=== PATIENT | female | born 1955 | race Caucasian/White ===

== ENCOUNTER 2019-09-04 10:52 | Emergency (ER) | payer BC, MEDICAID ==
[2019-09-04] MEDS ORDERED: ASPIRIN 81 MG TABLET, CHEWABLE PO ONE (11:03)
[2019-09-04] MEDS ORDERED: MORPHINE SULFATE 10 MG/ML INJ IV ONE ×2 (11:07→11:52)
[2019-09-04] MEDS ORDERED: NORMAL SALINE 1000 ML 1,000 ML IV ONE ×2 (11:09→13:28)
--- NOTE | 2019-09-04 11:09 | ER Document Report ---
ED Medical Screen (RME) - General Chief Complaint: Chest Pain Stated Complaint: CHEST PAIN Time Seen by Provider: 09/04/19 11:03 Mode of Arrival: Wheelchair Information source: Patient Notes: 64-year-old female presented to ED for complaint of left-sided chest pain. She states it does not radiate down her left arm or shoulder but she does have numbness to her left arm and shoulder. She states she has had the pain for about 4 days. She states she called her special inspector at [place] and they told her to please go immediately to the emergency room. She did have an IL about a year ago. She is alert oriented respirations regular nonlabored speaking in full sentences. States she does not smoke drink or use any drugs. She states the pain is a 4 out of 5. I have started the normal cardiac work-up started her on aspirin and given her 2 mg of morphine IV. I have greeted and performed a rapid initial assessment of this patient. A comprehensive ED assessment and evaluation of the patient, analysis of test results and completion of medical decision making process will be conducted by an additional ED providers. TRAVEL OUTSIDE OF THE [place].S. IN LAST 30 DAYS: No - Related Data Allergies/Adverse Reactions: Iodinated Contrast Media [IV Dye, Iodine Containing] Allergy (Verified 05/07/12 03:02) Past Medical History - Past Medical History Cardiac Medical History: Reports: Hx Hypercholesterolemia, Hx Hypertension Endocrine Medical History: Reports: Hx Diabetes Mellitus Type 2, Hx Hypothyroidism Past Surgical History: Reports: Hx Section, Hx Cholecystectomy, Hx Gastric Bypass Surgery, Hx Hysterectomy - Immunizations Immunizations up to date: Yes Hx Diphtheria, Pertussis, Tetanus Vaccination: Yes Physical Exam - Vital signs Vitals: Temp Pulse Resp BP Pulse Ox 97.8 F 65 18 130/63 H 98 09/04/19 11:01 09/04/19 11:01 09/04/19 11:01 09/04/19 11:01 09/04/19 11:01 Course - Vital Signs Vital signs: Temp Pulse Resp BP Pulse Ox 97.8 F 65 18 130/63 H 98 09/04/19 11:01 09/04/19 11:01 09/04/19 11:01 09/04/19 11:01 09/04/19 11:01
[2019-09-04 11:27] LABS: ABSOLUTE EOSINOPHILS # (AUTO) 0.1 10^3/uL (0.0-0.6); ABSOLUTE LYMPHOCYTES (AUTO) 1.7 10^3/uL (0.5-4.7); ABSOLUTE MONOCYTES (AUTO) 0.5 10^3/uL (0.1-1.4); ABSOLUTE NEUT (AUTO) 3.8 10^3/uL (1.7-8.2); BASOPHILS % (AUTO) 0.8 % (0-2); HEMATOCRIT 34.2 % (36.0-47.0); HEMOGLOBIN 12.4 g/dL (12.0-15.5); MEAN CORPUSCULAR HEMOGLOBIN 35.3 pg (27.0-33.4); MEAN CORPUSCULAR HGB CONC 36.3 g/dL (32.0-36.0); MEAN CORPUSCULAR VOLUME 97 fl (80-97); MONOCYTES % (AUTO) 7.7 % (3-13); PLATELET COUNT 312 10^3/uL (150-450); RED BLOOD COUNT 3.52 10^6/uL (3.72-5.28); RED CELL DISTRIBUTION WIDTH 13.9 % (11.5-14.0); SEGMENTED NEUTROPHILS % (AUTO) 61.5 % (42-78); TOTAL CELLS COUNTED % (AUTO) 100 %; WHITE BLOOD COUNT 6.2 10^3/uL (4.0-10.5)
[2019-09-04 11:48] LABS: ALKALINE PHOSPHATASE 75 U/L (38-126); ANION GAP 10 (5-19); ASPARTATE AMINO TRANSFERASE 35 U/L (14-36); BILIRUBIN,TOTAL 0.4 mg/dL (0.2-1.3); BLOOD UREA NITROGEN 21 mg/dL (7-20); CALCIUM 9.7 mg/dL (8.4-10.2); CARBON DIOXIDE 26 mmol/L (22-30); CHLORIDE 106 mmol/L (98-107); GLUCOSE 105 mg/dL (75-110); POTASSIUM 4.5 mmol/L (3.6-5.0); TOTAL PROTEIN 8.3 g/dL (6.3-8.2)
[2019-09-04] MEDS ORDERED: ONDANSETRON HCL INJ/PF 4 MG/2 ML SDV IV ONE (11:51)
[2019-09-04] MEDS ORDERED: METHYLPREDNISOLONE INJ 125 MG/2 ML SDV IV ONE (11:57)
[2019-09-04] MEDS ORDERED: FAMOTIDINE INJ/PF 20 MG/2 ML SDV IV ONE (11:58)
[2019-09-04] MEDS ORDERED: DIPHENHYDRAMINE HCL 50 MG/ML VIAL IV ONE (11:58)
--- NOTE | 2019-09-04 12:02 | RADIOLOGY REPORT (SQ) ---
EXAM DESCRIPTION: CHEST 2 VIEWS IMAGES COMPLETED DATE/TIME: 09/04/2019 11:52 am REASON FOR STUDY: chest pain COMPARISON: 05/04/2015 EXAM PARAMETERS: NUMBER OF VIEWS: two views TECHNIQUE: Digital Frontal and Lateral radiographic views of the chest acquired. RADIATION DOSE: NA LIMITATIONS: none FINDINGS: LUNGS AND PLEURA: No opacities, masses or pneumothorax. No pleural effusion. MEDIASTINUM AND HILAR STRUCTURES: No masses or contour abnormalities. HEART AND VASCULAR STRUCTURES: Heart normal size. No evidence for failure. BONES: No acute findings. HARDWARE: None in the chest. Surgical clips overlie left upper quadrant. OTHER: No other significant finding. IMPRESSION: NO ACUTE RADIOGRAPHIC FINDING IN THE CHEST. TECHNICAL DOCUMENTATION: JOB ID: [id number] 2010 [employer]- All Rights Reserved Reading location - IP/workstation name: [email or web address]
--- NOTE | 2019-09-04 12:05 | ER Document Report ---
ED General - General Chief Complaint: Chest Pain Stated Complaint: CHEST PAIN Time Seen by Provider: 09/04/19 11:03 Mode of Arrival: Wheelchair TRAVEL OUTSIDE OF THE [place].S. IN LAST 30 DAYS: No - HPI Notes: Chief complaint: Chest pain HPI: 64-year-old female with known history of coronary disease with previous PR and stent placement at [facility] and seen there by Dr. Mi now presents with 4- day history intermittent chest and back pain. States that the pain is somewhat different than her prior ischemic pain. She reports a slip and fall at home about 10 days ago but did not have any pain at that time and began experiencing her present symptoms 4 days ago. This is gotten progressively worse. It is aggravated by exertion and relieved by rest. No shortness of breath. Mild dizziness. No nausea, vomiting, cough, chills or fever. No dyspnea. Denies any personal or family history of thromboembolic disease. Patient is a non-smoker. She is not diabetic but has history of hyperlipidemia and hypertension as well as pre-existing history of coronary disease. Patient reports multiple allergies including IV contrast, hydrochlorothiazide and Plavix. She takes aspirin daily. Patient indicates that her reaction to IV contrast was mild urticaria. She also notes that she is subsequently received IV contrast after steroid pretreatment and is done well with this. Patient received a dose of sublingual nitroglycerin and 2 mg of morphine when she was initially seen on arrival here by the nurse practitioner. She reports her present pain level remains 8/10. Pain radiates into her back. - Related Data Allergies/Adverse Reactions: Iodinated Contrast Media [IV Dye, Iodine Containing] Allergy (Verified 05/07/12 03:02) Past Medical History - General Information source: Patient, [facility] Records - Social History Smoking Status: Never Smoker Family History: Reviewed & Not Pertinent Patient has suicidal ideation: No Patient has homicidal ideation: No - Past Medical History Cardiac Medical History: Reports: Hx Coronary Artery Disease, Hx Heart Attack, Hx Hypercholesterolemia, Hx Hypertension Endocrine Medical History: Reports: Hx Diabetes Mellitus Type 2, Hx Hypothyroidism Past Surgical History: Reports: Hx Section, Hx Cholecystectomy, Hx Gas tric Bypass Surgery, Hx Hysterectomy - Immunizations Immunizations up to date: Yes Hx Diphtheria, Pertussis, Tetanus Vaccination: Yes Review of Systems - Review of Systems Notes: Constitutional: Negative for fever. HENT: Negative for sore throat. Eyes: Negative for visual changes. Cardiovascular: As per HPI. Respiratory: As per HPI. Gastrointestinal: Negative for abdominal pain, vomiting or diarrhea. Genitourinary: Negative for dysuria. Musculoskeletal: As per HPI. Skin: Negative for rash. Neurological: Mild dizziness. Negative for headaches, weakness or numbness. 10 point ROS negative except as marked above and in HPI. Physical Exam - Vital signs Vitals: Temp Pulse Resp BP Pulse Ox 97.8 F 65 18 130/63 H 98 09/04/19 11:01 09/04/19 11:01 09/04/19 11:01 09/04/19 11:01 09/04/19 11:01 - Notes Notes: GENERAL: Well-developed well-nourished appearing in no acute distress. SKIN: Good turgor no rashes. HEAD: Normocephalic atraumatic. EYES: PERRLA. EOMI. Conjunctivae and sclerae clear. EARS: CANALS AND TMS CLEAR. NOSE: CLEAR. MOUTH: Moist mucosa. Good dentition. No stridor or edema. No drooling. NECK: Supple. No masses or thyromegaly. No adenopathy. Carotids 2+ without bruits. No JVD. BACK: Symmetrical without tenderness. CHEST: No chest wall tenderness. Respirations unlabored. Breath sounds clear and symmetrical. HEART: Regular rhythm. Grade 2/6 systolic murmur right second interspace without radiation. No gallop or rub. ABDOMEN: Soft nontender without masses, organomegaly or rebound. Bowel sounds normally active. No bruits. GENITALIA: Deferred. EXTREMITIES: Mild degenerative changes in phalangeal joints both hands. No edema. No calf tenderness. Cap refill less than 1.5 seconds. Dorsalis pedis and posterior tibial pulses 3+ and symmetrical. NEUROLOGICAL: GCS 15. Alert and oriented x3. Normal gait. Fluent speech. Cranial nerves II through XII intact. Sensorimotor and cerebellar normal. Normal tone. PSYCHIATRIC: Anxious affect. Course - Re-evaluation Re-evalutation: 09/04/19 12:06 Initial troponin is normal. Chest x-ray normal. Initial EKG normal. Because of radiation of the back I would have to have some concern about possibility of a dissection although this pain is been going on for a while now. Also have to consider pulmonary embolus. We are going to get a CT angiogram of the chest and I am going to pretreat her with antihistamine and IV steroid. We will give her some additional morphine for pain control. 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 Mi. Current findings and recommendations have been discussed with patient in detail. 09/04/19 14:[address] Mi and Dr. Leyva at [facility] and patient has been accepted as transfer for evaluation possible ACS. IV nitroglycerin and IV heparin infu julia initiated. Patient advised as to current findings and recommendations and she fully understands and agrees with transfer. - Vital Signs Vital signs: Temp Pulse Resp BP Pulse Ox 97.8 F 65 19 122/69 96 09/04/19 11:01 09/04/19 11:01 09/04/19 13:00 09/04/19 11:17 09/04/19 13:00 - Laboratory Result Diagrams: 09/04/19 11:15 09/04/19 11:15 Laboratory results interpreted by me: 09/04/19 09/04/19 09/04/19 11:15 11:15 11:15 RBC 3.52 L Hct 34.2 L MCH 35.3 H MCHC 36.3 H APTT 21.6 L BUN 21 H Creatinine 1.66 H Est GFR ( Amer) 38 L Est GFR (MDRD) Non-Af 31 L Total Protein 8.3 H - EKG Interpretation by Me Additional EKG results interpreted by me: 09/04/19 12:06 Twelve-lead EKG from 1056 hrs. is reviewed contemporaneously by me demonstrating normal sinus rhythm with a rate of 62, normal intervals, normal axis and no acute ST/T wave changes. Critical Care Note - Critical Care Note Total time excluding time spent on procedures (mins): 65 - ACS, IV nitroglycerin and IV heparin with transfer to interventional cardiology Discharge - Discharge Clinical Impression: Acute coronary syndrome Condition: Fair Disposition: [facility]
[2019-09-04 12:10] LABS: INTERNATIONAL RATION (INR) 0.93; PARTIAL THROMBOPLASTIN TIME 21.6 SEC (23.5-35.8); PROTHROMBIN TIME 12.5 SEC (11.4-15.4)
--- NOTE | 2019-09-04 13:16 | RADIOLOGY REPORT (SQ) ---
EXAM DESCRIPTION: CTA CHEST IMAGES COMPLETED DATE/TIME: 09/04/2019 12:55 pm REASON FOR STUDY: CP; r/o PE, Ao dissection COMPARISON: Recent radiographs. 2009 CT. TECHNIQUE: CT scan of the chest performed using helical scanning technique with dynamic intravenous contrast injection. Images reviewed with lung, soft tissue and bone windows. Reconstructed coronal and sagittal MPR images reviewed. Additional 3 dimensional post-processing performed to develop Maximal Intensity Projection images ([place] P). All images stored on PACS. All CT scanners at this facility use dose modulation, iterative reconstruction, and/or weight based d osing when appropriate to reduce radiation dose to as low as reasonably achievable (ALARA). [facility]: Dose Right [facility]: CareDose [facility]: Dose Right [facility]: Teradose 4D [facility]: [employer] CONTRAST TYPE AND DOSE: contrast/concentration: Isovue 300.00 mg/ml; Total Contrast Delivered: 52.0 ml; Total Saline Delivered: 70.0 ml Contrast bolus adequate for pulmonary arteries and aorta. RENAL FUNCTION: GFR > 60. RADIATION DOSE: CT Rad equipment meets quality standard of care and radiation dose reduction techniq ues were employed. CTDIvol: 9.9 - 14.3 mGy. DLP: 514 mGy-cm. . LIMITATIONS: None. FINDINGS: LUNGS AND PLEURA: No masses, infiltrates, or pneumothorax. No pleural effusions or pleura l calcifications. AORTA AND GREAT VESSELS: No aneurysm. Contrast bolus not optimized for the aorta. HEART: No pericardial effusion. No significant coronary artery calcifications. PULMONARY ARTERIES: No emboli visualized in the main pulmonary arteries or the segmental branches. HILAR AND MEDIASTINAL STRUCTURES: No identified masses or abnormal nodes. HARDWARE: None in the chest. UPPER ABDOMEN: Chronic pancreatic cysts suggested. THYROID AND OTHER SOFT TISSUES: No masses. No adenopathy. BONES: No acute or significant finding. 3D MIPS: Confirm above findings. OTHER: No other significant finding. IMPRESSION: NORMAL CTA OF THE CHEST. NO PULMONARY EMBOLI. COMMENT: Quality ID # 436: Final reports with documentation of one or more dose reduction techniques (e.g., Automated exposure control, adjustment of the mA and/or kV according to patient size, use of iterative reconstruction technique) TECHNICAL DOCUMENTATION: JOB ID: [id number] 2010 [employer]- All Rights Reserved Reading location - IP/workstation name: [email or web address]
[2019-09-04] MEDS ORDERED: MORPHINE SULFATE 10 MG/ML INJ IV PRN (14:28)
[2019-09-04] MEDS ORDERED: NITROGLYCERIN/D5W 50 MG/250 ML RTUINJ IV PRN (14:29)
[2019-09-04] MEDS ORDERED: HEPARIN SOD (PORCINE) 1,000 UNIT/ML 10 ML VIAL IV ONE (14:31)
[2019-09-04] MEDS ORDERED: HEPARIN SODIUM,PORCINE/D5W 25,000 UNIT/250 ML RTUINJ IV PRN (14:31)
[2019-09-04 15:45] VITALS: BP 167/76
--- NOTE | 2019-09-05 07:27 | EKG REPORT ---
SEVERITY:- NORMAL ECG - SINUS RHYTHM : Confirmed by: Uma Dean 05-Sep-2019 07:26:32
--- NOTE | 2019-09-05 07:27 | EKG REPORT ---
SEVERITY:- NORMAL ECG - SINUS RHYTHM : Confirmed by: Uma Dean 05-Sep-2019 07:26:38
== END 2019-09-04 16:00 | disposition short-term general hospital (02) ==
LOC: ER 10:52
DX: I24.9 Acute ischemic heart disease, unspecified (principal); I10 Essential (primary) hypertension; I25.10 Atherosclerotic heart disease of native coronary artery without angina pectoris; R07.9 Chest pain, unspecified; M54.9 Dorsalgia, unspecified; R42 Dizziness and giddiness; W01.0XXA Fall on same level from slipping, tripping and stumbling without subsequent striking against object, initial encounter; I25.2 Old myocardial infarction; E78.5 Hyperlipidemia, unspecified; E11.9 Type 2 diabetes mellitus without complications
CPT/HCPCS: 93005; 96376; 99291; 96361; 96375; 96365; 96368; 36415; 83735; 85025; 85610; 85730; 80053; 84484; 71046; 71275; 93010; J1644 ×2; J1200; J2930; J2270; J2405; J3490; J7030; S0028

== ENCOUNTER 2019-10-09 00:30 | Emergency (ER) | payer BC ==
[2019-10-09] MEDS ORDERED: ONDANSETRON HCL INJ/PF 4 MG/2 ML SDV IV ONE ×2 (01:19→03:13)
[2019-10-09] MEDS ORDERED: MORPHINE SULFATE 10 MG/ML INJ IV ONE ×4 (01:38→09:00)
[2019-10-09 01:51] LABS: ABSOLUTE BASOPHILS # (AUTO) 0.1 10^3/uL (0.0-0.2); ABSOLUTE EOSINOPHILS # (AUTO) 0.1 10^3/uL (0.0-0.6); ABSOLUTE LYMPHOCYTES (AUTO) 1.6 10^3/uL (0.5-4.7); ABSOLUTE MONOCYTES (AUTO) 0.9 10^3/uL (0.1-1.4); ABSOLUTE NEUT (AUTO) 14.5 10^3/uL (1.7-8.2); BASOPHILS % (AUTO) 0.5 % (0-2); EOSINOPHILS % (AUTO) 0.3 % (0-6); HEMOGLOBIN 13.5 g/dL (12.0-15.5); LYMPHOCYTES % (AUTO) 9.4 % (13-45); MEAN CORPUSCULAR HEMOGLOBIN 33.8 pg (27.0-33.4); MEAN CORPUSCULAR HGB CONC 34.7 g/dL (32.0-36.0); MEAN CORPUSCULAR VOLUME 97 fl (80-97); MONOCYTES % (AUTO) 5.4 % (3-13); PLATELET COUNT 307 10^3/uL (150-450); RED CELL DISTRIBUTION WIDTH 13.5 % (11.5-14.0); SEGMENTED NEUTROPHILS % (AUTO) 84.4 % (42-78); TOTAL CELLS COUNTED % (AUTO) 100 %; WHITE BLOOD COUNT 17.1 10^3/uL (4.0-10.5)
[2019-10-09 01:56] LABS: PROTHROMBIN TIME 12.1 SEC (11.4-15.4)
[2019-10-09 01:57] LABS: ALBUMIN 5.3 g/dL (3.5-5.0); ALKALINE PHOSPHATASE 95 U/L (38-126); ANION GAP 13 (5-19); ASPARTATE AMINO TRANSFERASE 30 U/L (14-36); BILIRUBIN,DIRECT 0.1 mg/dL (0.0-0.4); BILIRUBIN,TOTAL 0.4 mg/dL (0.2-1.3); BLOOD UREA NITROGEN 38 mg/dL (7-20); CALCIUM 10.8 mg/dL (8.4-10.2); CARBON DIOXIDE 28 mmol/L (22-30); CHLORIDE 97 mmol/L (98-107); GLUCOSE 203 mg/dL (75-110); POTASSIUM 4.1 mmol/L (3.6-5.0); TOTAL PROTEIN 8.7 g/dL (6.3-8.2)
[2019-10-09] MEDS ORDERED: HYDROCORTISONE SOD SUCCINATE INJ/PF 100 MG/2 ML SDV IV ONE (02:35)
[2019-10-09] MEDS ORDERED: DIPHENHYDRAMINE HCL 50 MG/ML VIAL IV ONE (02:37)
[2019-10-09] MEDS ORDERED: RINGERS SOLUTION,LACTATED 1,000 ML IV ONE (02:38)
--- NOTE | 2019-10-09 03:48 | RADIOLOGY REPORT (SQ) ---
ABDOMINAL RADIOGRAPH: 10/09/2019 2:46 AM CDT COMPARISON: None available TECHNIQUE: A single radiograph of the abdomen was obtained. HISTORY: 64-year old with abdominal pain. FINDINGS: The visualized lung bases appear clear. The visualized bowel gas pattern is nonspecific and nonobstructive. No abnormal intra-abdominal calcifications are seen. The hepatic silhouette is at the upper limits of normal in size. There are surgical clips seen over the left upper and mid abdomen. There is a nonspecific mildly prominent loop of small bowel at the left mid abdomen. IMPRESSION: The bowel gas pattern is nonobstructive and nonspecific.
--- NOTE | 2019-10-09 03:48 | RADIOLOGY REPORT (SQ) ---
AP Portable chest: 10/09/2019 2:46 AM CDT History: 64-year old patient with vomiting. Comparison: None available Findings: The cardiomediastinal silhouette is normal in size. No pneumothorax is seen. No acute airspace opacities are seen. No discrete pleural effusion is apparent. There are surgical clips seen over the left upper abdomen. Impression: No acute airspace opacities are seen.
[2019-10-09] MEDS ORDERED: METOCLOPRAMIDE HCL INJ/PF 10 MG/2 ML SDV IV ONE (04:06)
[2019-10-09] MEDS ORDERED: METOCLOPRAMIDE HCL INJ/PF 10 MG/2 ML SDV ONE (04:07)
--- NOTE | 2019-10-09 05:28 | RADIOLOGY REPORT (SQ) ---
EXAM DESCRIPTION: CT ABDOMEN PELVIS WITH IV CONTRAST COMPLETED DATE/TME: 10/09/2019 00:00 CLINICAL HISTORY: 64 years, Female, abd pain vomiting h/o sbo. CREAT 1.69 COMPARISON: None. TECHNIQUE: 674 Images stored on PACS. All CT scanners at this facility use dose modulation, iterative reconstruction, and/or weight based dosing when appropriate to reduce radiation dose to as low as reasonably achievable (ALARA). [facility]: Dose Right [facility]: CareDose [facility]: Dose Right [facility]: Teradose 4D [facility]: [employer] LIMITATIONS: None. FINDINGS: Visualized lung bases are unremarkable. Osseous structures are grossly intact. The liver, spleen, adrenal glands, pancreas, kidneys are unremarkable. Surgical absence of the gallbladder. Post surgical changes in the epigastric region consistent with gastric bypass. There is some fluid in the excluded stomach. Dilated appearance to the distal anastomosis measuring up to 5 cm. Diffusely dilated fluid-filled loops of small bowel are present throughout the abdomen and pelvis with suspected transition point in the right lower quadrant. Remaining small bowel loops have a maximal diameter of 3.7 cm. No free air or free fluid. Appendix not well seen. No pericecal inflammation. IMPRESSION: Small bowel obstruction with transition point likely in the right lower quadrant involving distal loops of ileum. Mildly dilated loops of small bowel are present, as well as mild dilatation of the distal gastric bypass anastomosis. No free air or free fluid. TECHNICAL DOCUMENTATION: Quality ID # [id number]: Final reports with documentation of one or more dose reduction techniques (e.g., Automated exposure control, adjustment of the mA and/or kV according to patient size, use of iterative reconstruction technique) copyright 2011 [employer]- All Rights Reserved
[2019-10-09] MEDS ORDERED: LIDOCAINE 2% INJ-PF (20 MG/ML) 10 ML AMPUL NEB ONE (05:41)
--- NOTE | 2019-10-09 06:23 | ER Document Report ---
ED General - General Chief Complaint: Abdominal Pain Stated Complaint: VOMITING Primary Care Provider: RICARDA KNOWLES MD [Primary Care Provider] - Follow up as needed TRAVEL OUTSIDE OF THE [place]. IN LAST 30 DAYS: No - HPI Notes: 64-year-old female history of CAD with stents, 3 prior C-sections, hysterectomy, oratory laparoscopy, SBO with surgical intervention approximately 1 month ago at [facility] presents with 1 day severe diffuse abdominal pain associated with numerous episodes of nonbilious nonbloody emesis similar to prior SBO presentation. Patient denies constipation, obstipation, diarrhea, fever, trauma, urinary symptoms, [employer] symptoms, chest pain, dizziness, syncope. - Related Data Allergies/Adverse Reactions: clonidine Allergy (Verified 10/09/19 04:40) clopidogrel [From Plavix] Allergy (Verified 10/09/19 04:40) hydrochlorothiazide Allergy (Verified 10/09/19 04:40) Iodinated Contrast Media [IV Dye, Iodine Containing] Allergy (Verified 10/09/19 02:31) Past Medical History - General Information source: Patient - Social History Smoking Status: Unknown if Ever Smoked Family History: Reviewed & Not Pertinent Patient has homicidal ideation: No - Past Medical History Cardiac Medical History: Reports: Hx Coronary Artery Disease, Hx Heart Attack, Hx Hypercholesterolemia, Hx Hypertension Endocrine Medical History: Reports: Hx Diabetes Mellitus Type 2, Hx Hypothyroidism Past Surgical History: Reports: Hx Section, Hx Cholecystectomy, Hx Gastric Bypass Surgery, Hx Hysterectomy - Immunizations Immunizations up to date: Yes Hx Diphtheria, Pertussis, Tetanus Vaccination: Yes Review of Systems - Review of Systems Notes: REVIEW OF SYSTEMS: CONSTITUTIONAL : Denies fever, chills, or sweats. EENT: Denies recent cold/sinus symptoms, denies throat pain CARDIOVASCULAR: Denies chest pain, HANNAH RESPIRATORY: Denies cough, denies shortness of breath. GASTROINTESTINAL: + abdominal pain, +nausea/vomiting. GENITOURINARY: Denies difficulty urinating, painful urination. FEMALE GENITOURINARY: Denies abnormal vaginal bleeding, vaginal discharge. MUSCULOSKELETAL: Denies neck pain, back pain. SKIN: Denies rash or skin lesions. HEMATOLOGIC : Denies easy bruising or bleeding. LYMPHATIC: Denies swollen, enlarged glands. NEUROLOGICAL: Denies headache, denies change in gait. PSYCHIATRIC: Denies anxiety or stress or depression. Physical Exam - Vital signs Vitals: Temp Pulse Resp BP Pulse Ox 97.6 F 66 13 105/89 H 98 10/09/19 00:54 10/09/19 00:54 10/09/19 00:54 10/09/19 00:54 10/09/19 00:54 - Notes Notes: PHYSICAL EXAMINATION: GENERAL: Uncomfortable appearing middle-aged woman vomiting into emesis bag sitting up in stretcher HEAD: Atraumatic, normocephalic. EYES: Pupils equal round and appropriate constriction, sclera anicteric, conjunctiva are normal. ENT: nares patent, moist mucous membranes. NECK: Normal range of motion, supple without lymphadenopathy LUNGS: Breath sounds clear to auscultation bilaterally and equal. No wheezes rales or rhonchi. HEART: Regular rate and rhythm without murmurs ABDOMEN: Soft, tender diffusely, no guarding, no masses, no rebound, no CVAT EXTREMITIES: Normal range of motion, no pitting or edema. No cyanosis. NEUROLOGICAL: Awake, alert, conversing appropriately, moves all extremities spontaneously. PSYCH: Normal mood, normal affect. SKIN: Warm, Dry, normal turgor, no rashes or lesions noted. Course - Re-evaluation Re-evalutation: 10/09/19 06:21 Presentation concerning for repeat SBO, less likely appendectomy, no symptoms, patient otherwise well-appearing. Obtain CT abdomen pelvis which showed SBO, ordered NG tube and consulted [facility] where patient had lysis of adhesion a month ago. Patient accepted as surgical admission by Dr. Eduar Bartlett. Patient currently feels improved, no change in exam, pain improved with morphine. - Vital Signs Vital signs: Temp Pulse Resp BP Pulse Ox 97.6 F 66 20 182/96 H 99 10/09/19 02:26 10/09/19 00:54 10/09/19 04:02 10/09/19 04:02 10/09/19 04:02 - Laboratory Result Diagrams: 10/09/19 01:15 10/09/19 01:15 Laboratory results interpreted by me: 10/09/19 10/09/19 10/09/19 01:15 01:15 01:15 WBC 17.1 H MCH 33.8 H Lymph % (Auto) 9.4 L Absolute Neuts (auto) 14.5 H Seg Neutrophils % 84.4 H APTT 22.0 L Chloride 97 L BUN 38 H Creatinine 1.69 H Est GFR ( Amer) 37 L Est GFR (MDRD) Non-Af 31 L Glucose 203 H Calcium 10.8 H Total Protein 8.7 H Albumin 5.3 H Lipase 431.2 H Discharge - Discharge Clinical Impression: SBO (small bowel obstruction) Condition: Fair [facility] Admitting Provider: Surgicalist - Dr. Eduar Bartlett Referrals: RICARDA KNOWLES MD [Primary Care Provider] - Follow up as needed
--- NOTE | 2019-10-09 07:26 | EKG REPORT ---
SEVERITY:- BORDERLINE ECG - SINUS RHYTHM PROBABLE LEFT ATRIAL ABNORMALITY MINIMAL ST DEPRESSION, DIFFUSE LEADS : Confirmed by: Nain Lambert MD 09-Oct-2019 07:26:16
--- NOTE | 2019-10-09 08:28 | RADIOLOGY REPORT (SQ) ---
EXAM DESCRIPTION: KUB/ABDOMEN (SINGLE VIEW) IMAGES COMPLETED DATE/TIME: 10/09/2019 8:15 am REASON FOR STUDY: Placement ng NG tube COMPARISON: None. NUMBER OF VIEWS: One view. TECHNIQUE: Supine radiographic image of the abdomen acquired. LIMITATIONS: None. FINDINGS: BOWEL GAS PATTERN: Air-filled distended loops of small bowel in the left upper quadrant an d mid abdomen. CALCIFICATIONS: None. SOFT TISSUES: None. HARDWARE: The tip and side hole of the enteric tube project within the gastric lumen. There are surg ical clips in the left hemiabdomen. BONES: No acute findings. OTHER: No other finding. IMPRESSION: The tip and side hole of the enteric tube project within the gastric lumen. TECHNICAL DOCUMENTATION: JOB ID: [id number] 2010 [employer]- All Rights Reserved Reading location - IP/workstation name: [email or web address]
[2019-10-09 08:39] VITALS: BP 199/85
--- NOTE | 2019-10-09 08:45 | ER Document Report ---
ED General - General Chief Complaint: Abdominal Pain Stated Complaint: VOMITING Primary Care Provider: RICARDA KNOWLES MD [Primary Care Provider] - Follow up as needed Notes: Received signout by Dr. Polanco. SBO with NG tube pending transfer to [facility]. I reassessed the patient at 8:40 AM as Annie was here to pick her. She is stable and is ready for transfer. TRAVEL OUTSIDE OF THE [place]. IN LAST 30 DAYS: No - Related Data Allergies/Adverse Reactions: clonidine Allergy (Verified 10/09/19 04:40) clopidogrel [From Plavix] Allergy (Verified 10/09/19 04:40) hydrochlorothiazide Allergy (Verified 10/09/19 04:40) Iodinated Contrast Media [IV Dye, Iodine Containing] Allergy (Verified 10/09/19 02:31) Past Medical History - General Information source: Patient - Social History Smoking Status: Unknown if Ever Smoked Family History: Reviewed & Not Pertinent Patient has homicidal ideation: No - Past Medical History Cardiac Medical History: Reports: Hx Coronary Artery Disease, Hx Heart Attack, Hx Hypercholesterolemia, Hx Hypertension Endocrine Medical History: Reports: Hx Diabetes Mellitus Type 2, Hx Hypothyroidism Past Surgical History: Reports: Hx Section, Hx Cholecystectomy, Hx Gastric Bypass Surgery, Hx Hysterectomy - Immunizations Immunizations up to date: Yes Hx Diphtheria, Pertussis, Tetanus Vaccination: Yes Physical Exam - Vital signs Vitals: Temp Pulse Resp BP Pulse Ox 97.6 F 66 13 105/89 H 98 10/09/19 00:54 10/09/19 00:54 10/09/19 00:54 10/09/19 00:54 10/09/19 00:54 Course - Vital Signs Vital signs: Temp Pulse Resp BP Pulse Ox 98.1 F 66 17 199/85 H 99 10/09/19 08:19 10/09/19 00:54 10/09/19 08:19 10/09/19 08:19 10/09/19 08:19 - Laboratory Result Diagrams: 10/09/19 01:15 10/09/19 01:15 Laboratory results interpreted by me: 10/09/19 10/09/19 10/09/19 01:15 01:15 01:15 WBC 17.1 H MCH 33.8 H Lymph % (Auto) 9.4 L Absolute Neuts (auto) 14.5 H Seg Neutrophils % 84.4 H APTT 22.0 L Chloride 97 L BUN 38 H Creatinine 1.69 H Est GFR ( Amer) 37 L Est GFR (MDRD) Non-Af 31 L Glucose 203 H Calcium 10.8 H Total Protein 8.7 H Albumin 5.3 H Lipase 431.2 H Discharge - Discharge Clinical Impression: SBO (small bowel obstruction) Condition: Fair Disposition: [facility] Referrals: RICARDA KNOWLES MD [Primary Care Provider] - Follow up as needed
--- NOTE | 2019-10-10 07:34 | EKG REPORT ---
SEVERITY:- BORDERLINE ECG - SINUS RHYTHM BORDERLINE ST DEPRESSION, ANTERIOR LEADS : Confirmed by: Nain Lambert MD 10-Oct-2019 07:33:42
== END 2019-10-09 08:46 | disposition short-term general hospital (02) ==
LOC: ER 00:30
DX: K56.609 Unspecified intestinal obstruction, unspecified as to partial versus complete obstruction (principal); R10.9 Unspecified abdominal pain; R11.10 Vomiting, unspecified; Z88.8 Allergy status to other drugs, medicaments and biological substances; I25.10 Atherosclerotic heart disease of native coronary artery without angina pectoris; I25.2 Old myocardial infarction; I10 Essential (primary) hypertension; E11.9 Type 2 diabetes mellitus without complications
CPT/HCPCS: 93005; 96376; 94640; 99285; 96361; 96374; 96375; 36415; 83690; 85025; 85610; 85730; 80053; 84484; 71045; 74018; 74177; 93010; J1200; J1720; J2765; J2270; J2405; J7120; J3490

== ENCOUNTER 2019-12-03 18:33 | Inpatient (IN) | payer BC ==
[2019-12-03] MEDS ORDERED: METOCLOPRAMIDE HCL INJ/PF 10 MG/2 ML SDV IV ONE ×2 (19:11→20:31)
[2019-12-03] MEDS ORDERED: NORMAL SALINE 1000 ML 1,000 ML IV ONE (19:11)
[2019-12-03] MEDS ORDERED: MORPHINE SULFATE 10 MG/ML INJ IV ONE ×2 (19:12→20:31)
--- NOTE | 2019-12-03 19:12 | ER Document Report ---
ED GI/ - General Chief Complaint: Vomiting Stated Complaint: VOMITING Time Seen by Provider: 12/03/19 19:03 Primary Care Provider: RICARDA KNOWLES MD [COMMUNITY BASED STAFF] - Follow up as needed Information source: Patient Notes: This is a 64-year-old female who started having abdominal pain and vomiting about 3 hours ago. She states is exactly how she felt last time she had a small bowel obstruction. TRAVEL OUTSIDE OF THE [place] IN LAST 30 DAYS: No - HPI Patient complains to provider of: Abdominal pain, Vomiting, Other - Patient has abdominal pain and vomiting very similar to when she last had a small bowel obstruction. - Related Data Allergies/Adverse Reactions: clonidine Allergy (Verified 10/09/19 04:40) clopidogrel [From Plavix] Allergy (Verified 10/09/19 04:40) hydrochlorothiazide Allergy (Verified 10/09/19 04:40) Iodinated Contrast Media [IV Dye, Iodine Containing] Allergy (Verified 10/09/19 02:31) Past Medical History - General Information source: Patient - Social History Smoking Status: Never Smoker Smoking Education Provided: No Frequency of alcohol use: None Drug Abuse: None Lives with: Family Family History: Reviewed & Not Pertinent - Past Medical History Cardiac Medical History: Reports: Hx Coronary Artery Disease, Hx Heart Attack, Hx Hypercholesterolemia, Hx Hypertension Endocrine Medical History: Reports: Hx Diabetes Mellitus Type 2, Hx Hypothyroidism Past Surgical History: Reports: Hx Section, Hx Cholecystectomy, Hx Gastric Bypass Surgery, Hx Hysterectomy - Immunizations Immunizations up to date: Yes Hx Diphtheria, Pertussis, Tetanus Vaccination: Yes Review of Systems - Review of Systems EENT: No symptoms reported Cardiovascular: No symptoms reported Respiratory: No symptoms reported Gastrointestinal: Abdomen distended, Abdominal pain, Vomiting Genitourinary: No symptoms reported Skin: No symptoms reported Neurological/Psychological: No symptoms reported Physical Exam - Vital signs Vitals: Temp Pulse Resp BP Pulse Ox 98.7 F 72 16 160/92 H 100 12/03/19 18:48 12/03/19 18:48 12/03/19 18:48 12/03/19 18:48 12/03/19 18:48 Interpretation: Normal - General General appearance: Appears well, Alert - HEENT Head: Normocephalic, Atraumatic Eyes: Normal Pupils: PERRL - Respiratory Respiratory status: No respiratory distress Chest status: Nontender Breath sounds: Normal Chest palpation: Normal - Cardiovascular Rhythm: Regular Heart sounds: Normal auscultation Murmur: No - Abdominal Inspection: Normal Distension: No distension, Distended Bowel sounds: Hypoactive Tenderness: Nontender, Tender Organomegaly: No organomegaly - Back Back: Normal, Nontender - Extremities General upper extremity: Normal inspection, Nontender, Normal color, Normal ROM, Normal temperature General lower extremity: Normal inspection, Nontender, Normal color, Normal ROM, Normal temperature, Normal weight bearing. No: Negrito's sign - Neurological Neuro grossly intact: Yes Cognition: Normal Orientation: AAOx4 Lester Coma Scale Eye Opening: Spontaneous [place] Coma Scale Verbal: Oriented [place] Coma Scale Motor: Obeys Commands [place] Coma Scale Total: 15 Speech: Normal Motor strength normal: LUE, RUE, LLE, RLE Sensory: Normal - Psychological Associated symptoms: Normal affect, Normal mood - Skin Skin Temperature: Warm Skin Moisture: Dry Skin Color: Normal Course - Re-evaluation Re-evalutation: 12/03/19 23:35 Dr. Torres of surgery was called with the CT findings which were that of an SBO. I did not give the patient oral contrast in efforts to try to get a KUB originally and expedite the patient's care as well as the fact that she is allergic to contrast and she did have an SBO previously Dr. Torres offered and his preference would be to have a low threshold for oral contrast in the future with these cases. He did come in and will be admitting the patient and he did request that we refrain from narcotic medication throughout the evening that certainly we could provide her with Toradol for discomfort and place an 18 Malay nasogastric tube to intermittent low suction. - Vital Signs Vital signs: Temp Pulse Resp BP Pulse Ox 98.4 F 70 18 170/82 H 100 12/03/19 23:10 12/03/19 23:10 12/03/19 23:10 12/03/19 23:10 12/03/19 23:10 - Laboratory Result Diagrams: 12/03/19 19:35 12/03/19 19:35 Laboratory results interpreted by me: 12/03/19 12/03/19 19:35 19:35 WBC 12.7 H Lymph % (Auto) 12.1 L Absolute Neuts (auto) 10.0 H Seg Neutrophils % 79.2 H Sodium 135.3 L Potassium 5.1 H Chloride 95 L BUN 30 H Creatinine 1.55 H Est GFR ( Amer) 41 L Est GFR (MDRD) Non-Af 34 L Glucose 198 H Calcium 11.0 H Total Protein 9.6 H Albumin 5.6 H Labs- All tests 24 hr 12/03/19 12/03/19 19:35 19:35 WBC 12.7 H RBC 4.34 Hgb 14.5 Hct 41.9 MCV 97 MCH 33.3 MCHC 34.5 RDW 13.0 Plt Count 342 Lymph % (Auto) 12.1 L [place] % (Auto) 7.4 Eos % (Auto) 0.6 Baso % (Auto) 0.7 Absolute Neuts (auto) 10.0 H Absolute Lymphs (auto) 1.5 Absolute Monos (auto) 0.9 Absolute Eos (auto) 0.1 Absolute Basos (auto) 0.1 Seg Neutrophils % 79.2 H Sodium 135.3 L Potassium 5.1 H Chloride 95 L Carbon Dioxide 27 Anion Gap 13 BUN 30 H Creatinine 1.55 H Est GFR ( Amer) 41 L Est GFR (MDRD) Non-Af 34 L Glucose 198 H Calcium 11.0 H Total Bilirubin 0.5 Direct Bilirubin 0.1 Neonat Total Bilirubin Not Reportable Neonat Direct Bilirubin Not Reportable Neonat Indirect Bili Not Reportable AST 31 ALT 18 Alkaline Phosphatase 95 Total Protein 9.6 H Albumin 5.6 H Lipase 236.6 - Diagnostic Test Radiology results interpreted by me: 12/03/19 23:39 KUB X-Ray 12/03/19 19:09 IMPRESSION: There appear to be dilated small bowel loops the left mid abdomen measuring up to 4.4 cm, consider additional evaluation to exclude possible obstruction. Abdomen/Pelvis CT 12/03/19 19:10 IMPRESSION: 1. Evidence of distal small bowel obstruction similar to 10/09/2019. 2. Cannot exclude additional abnormality more proximally in the gastric related surgery. There is mild secondary dilatation of the distal esophagus. There is mild associated thickening in the GE junction which is nonspecific. 3. Intra and extra hepatic biliary dilatation unchanged but more than usually seen after cholecystectomy. If abnormal liver function test, consider MRCP. There is no suspicious pancreatic head lesion but there are nonspecific small hypodensities in the body of the pancreas. Discharge - Discharge Clinical Impression: Small bowel obstruction Condition: Good Disposition: ADMITTED INPATIENT Admitting Provider: Surgicalist - Dr. Torres Unit Admitted: Surgical Floor Referrals: RICARDA KNOWLES MD [COMMUNITY BASED STAFF] - Follow up as needed
[2019-12-03 19:53] LABS: ABSOLUTE BASOPHILS # (AUTO) 0.1 10^3/uL (0.0-0.2); ABSOLUTE EOSINOPHILS # (AUTO) 0.1 10^3/uL (0.0-0.6); ABSOLUTE LYMPHOCYTES (AUTO) 1.5 10^3/uL (0.5-4.7); ABSOLUTE MONOCYTES (AUTO) 0.9 10^3/uL (0.1-1.4); BASOPHILS % (AUTO) 0.7 % (0-2); EOSINOPHILS % (AUTO) 0.6 % (0-6); HEMATOCRIT 41.9 % (36.0-47.0); HEMOGLOBIN 14.5 g/dL (12.0-15.5); LYMPHOCYTES % (AUTO) 12.1 % (13-45); MEAN CORPUSCULAR HEMOGLOBIN 33.3 pg (27.0-33.4); MEAN CORPUSCULAR HGB CONC 34.5 g/dL (32.0-36.0); MEAN CORPUSCULAR VOLUME 97 fl (80-97); MONOCYTES % (AUTO) 7.4 % (3-13); PLATELET COUNT 342 10^3/uL (150-450); RED BLOOD COUNT 4.34 10^6/uL (3.72-5.28); SEGMENTED NEUTROPHILS % (AUTO) 79.2 % (42-78); TOTAL CELLS COUNTED % (AUTO) 100 %; WHITE BLOOD COUNT 12.7 10^3/uL (4.0-10.5)
[2019-12-03 20:04] LABS: ALBUMIN 5.6 g/dL (3.5-5.0); ALKALINE PHOSPHATASE 95 U/L (38-126); ANION GAP 13 (5-19); ASPARTATE AMINO TRANSFERASE 31 U/L (14-36); BILIRUBIN,DIRECT 0.1 mg/dL (0.0-0.4); BILIRUBIN,TOTAL 0.5 mg/dL (0.2-1.3); BLOOD UREA NITROGEN 30 mg/dL (7-20); CARBON DIOXIDE 27 mmol/L (22-30); CHLORIDE 95 mmol/L (98-107); GLUCOSE 198 mg/dL (75-110); POTASSIUM 5.1 mmol/L (3.6-5.0); TOTAL PROTEIN 9.6 g/dL (6.3-8.2)
--- NOTE | 2019-12-03 20:07 | RADIOLOGY REPORT (SQ) ---
EXAM DESCRIPTION: KUB/ABDOMEN (SINGLE VIEW) IMAGES COMPLETED DATE/TIME: 12/03/2019 7:34 pm REASON FOR STUDY: abd pain COMPARISON: None. NUMBER OF VIEWS: One view. TECHNIQUE: Supine radiographic image of the abdomen acquired. LIMITATIONS: None. FINDINGS: BOWEL GAS PATTERN: There appear to be dilated small bowel loops the left mid abdomen measu ring up to 4.4 cm. CALCIFICATIONS: No suspicious calcifications. SOFT TISSUES: No free-air identified. HARDWARE: Numerous surgical clips are present in the left upper quadrant. BONES: No acute fracture. No worrisome bone lesions. OTHER: No other significant finding. IMPRESSION: There appear to be dilated small bowel loops the left mid abdomen measuring up to 4.4 cm , consider additional evaluation to exclude possible obstruction. COMMENT: CT pending. TECHNICAL DOCUMENTATION: JOB ID: [id number] [id number] 2010 [employer]- All Rights Reserved Reading location - IP/workstation name: [employer]
[2019-12-03] MEDS ORDERED: DIPHENHYDRAMINE HCL 50 MG/ML VIAL IV ONE (20:48)
[2019-12-03] MEDS ORDERED: FAMOTIDINE INJ/PF 20 MG/2 ML SDV IV ONE (20:48)
[2019-12-03] MEDS ORDERED: METHYLPREDNISOLONE INJ 125 MG/2 ML SDV IV ONE (20:48)
--- NOTE | 2019-12-03 21:12 | EKG REPORT ---
SEVERITY:- NORMAL ECG - SINUS RHYTHM : Confirmed by: Betito Sanchez MD 03-Dec-2019 21:11:46
--- NOTE | 2019-12-03 22:43 | RADIOLOGY REPORT (SQ) ---
EXAM DESCRIPTION: CT ABDOMEN PELVIS WITH IV CONTRAST COMPLETED DATE/TME: 12/03/2019 19:10 CLINICAL HISTORY: 64 years, Female, . Abdominal pain. History of small bowel obstruction. COMPARISON: CT from 10/09/2019. TECHNIQUE: Patient allergic to iodine rate was premedicated. 100 mL of Omnipaque 300. Sagittal coronal reconstruction. All CT scanners at this facility use dose modulation, iterative reconstruction, and/or weight based dosing when appropriate to reduce radiation dose to as low as reasonably achievable (ALARA). FINDINGS: Lung bases are unremarkable. Mild dilatation of the distal esophagus. Mild thickening in the GE junction. Liver without focal lesion. Gallbladder not seen. No obvious pancreatic abnormality. There is [id number] intrahepatic biliary dilatation unchanged. There is common bile duct dilatation. Common hepatic duct to 14 mm. Common bile duct up to 9 mm. No suspicious pancreatic abnormality. Very subtle low density in the pancreatic body unchanged. Pancreatic duct is not dilated. Spleen, adrenal glands, aorta, para-aortic regions unremarkable. Suspected moderate atherosclerotic narrowing at the origin of the celiac artery. SMA is unremarkable. Kidneys without acute findings. Tiny cyst upper pole of left kidney. Previous gastric surgery. Bariatric? There appears to be dilatation of the excluded stomach and the gastric pouch. Dilatation associated with the distal anastomosis. Dilatation of the majority of the small bowel. Few distal small bowel loops in the right lower quadrant are not dilated. Normal size: With mild increased fluid. CT of the pelvis demonstrates absence of the uterus. Urinary bladder unremarkable. Distal colon is unremarkable. No free fluid or adenopathy. IMPRESSION: 1. Evidence of distal small bowel obstruction similar to 10/09/2019. 2. Cannot exclude additional abnormality more proximally in the gastric related surgery. There is mild secondary dilatation of the distal esophagus. There is mild associated thickening in the GE junction which is nonspecific. 3. Intra and extra hepatic biliary dilatation unchanged but more than usually seen after cholecystectomy. If abnormal liver function test, consider MRCP. There is no suspicious pancreatic head lesion but there are nonspecific small hypodensities in the body of the pancreas.
--- NOTE | 2019-12-03 23:38 | PDOC H&P ---
History of Present Illness Admission Date/PCP: LEOBARDO REARDON MD Patient complains of: Abdominal pain, nausea vomiting decreased bowel function History of Present Illness: [place] J[place] is a 64 year old female Presents emergency department via ground rescue with a one-day history of abdominal pain nausea repeated vomiting and decreased bowel function. Symptoms are similar to to previous small bowel obstructions patient experienced in August and September 2019. Patient was transferred to [facility], undergoing exploratory laparotomy, small bowel obstruction lysis of adhesions in August, and nasogastric decompression with resolution in September. Patient has no further vomiting, had a CT scan without oral contrast which showed findings consistent with previous intra-abdominal surgery consistent with a gastric bypass,cholecystectomy and multiple dilated loops of small bowel. The picture is consistent with small bowel obstruction, surgery was consulted and advised admission. She was taken out of the [facility] rule out area for examination by Dr. Torres. Past Medical History Cardiac Medical History: Reports: Coronary Artery Disease, Myocardial Infarction, Hyperlipidema, Hypertension Endocrine Medical History: Reports: Diabetes Mellitus Type 2, Hypothyroidism Past Surgical History Past Surgical History: Including exploratory laparotomy, lysis of adhesions August 2019 [facility]; coronary artery stent placement Past Surgical History: Reports: Section, Cholecystectomy, Gastric Bypass Surgery, Hysterectomy Social History Information Source: Patient Lives with: Family Smoking Status: Never Smoker Electronic Cigarette use?: No Frequency of Alcohol Use: None Hx Recreational Drug Use: No Family History Family History: None, Reviewed & Not Pertinent, CAD Parental Family History Reviewed: No Children Family History Reviewed: No Sibling(s) Family History Reviewed.: No Medication/Allergy Home Medications: Gabapentin [Neurontin 300 Mg Capsule] 300 mg PO BID #20 capsule 05/07/12 Azithromycin [Zithromax 250 mg Tablet] 250 mg PO DAILY #4 tablet 05/04/15 Prednisone [Deltasone 10 mg Tablet] 10 mg PO ASDIR PRN #21 tablet 05/04/15 Allergies/Adverse Reactions: clonidine Allergy (Verified 10/09/19 04:40) clopidogrel [From Plavix] Allergy (Verified 10/09/19 04:40) hydrochlorothiazide Allergy (Verified 10/09/19 04:40) Iodinated Contrast Media [IV Dye, Iodine Containing] Allergy (Verified 10/09/19 02:31) Review of Systems Constitutional: PRESENT: as per HPI Eyes: ABSENT: visual disturbances Ears: ABSENT: hearing changes Respiratory: PRESENT: as per HPI Gastrointestinal: PRESENT: as per HPI Genitourinary: ABSENT: dysuria, hematuria Musculoskeletal: ABSENT: joint swelling Psychiatric: ABSENT: anxiety, depression, homidical ideation, suicidal ideation Endocrine: ABSENT: cold intolerance, heat intolerance, polydipsia, polyuria Hematologic/Lymphatic: ABSENT: easy bleeding, easy bruising Physical Exam Vital Signs: Temp Pulse Resp BP Pulse Ox 98.4 F 70 18 170/82 H 100 12/03/19 23:10 12/03/19 23:10 12/03/19 23:10 12/03/19 23:10 12/03/19 23:10 Intake & Output 12/02/19 12/03/19 12/04/19 06:59 06:59 06:59 Intake Total 1000 Balance 1000 Weight 61.235 kg General appearance: PRESENT: no acute distress Head exam: PRESENT: normocephalic Eye exam: PRESENT: EOMI Mouth exam: PRESENT: dry mucosa Neck exam: PRESENT: full ROM Respiratory exam: PRESENT: clear to auscultation gui Cardiovascular exam: PRESENT: RRR Pulses: PRESENT: normal carotid pulses, normal radial pulses, normal femoral pulses GI/Abdominal exam: PRESENT: other - Multiple scars consistent with previous surgeries; hypoactive bowel sounds; mildly distended; no rigidity guarding or peritoneal signs. Rectal exam: PRESENT: deferred Extremities exam: PRESENT: full ROM Musculoskeletal exam: PRESENT: full ROM Neurological exam: PRESENT: awake, oriented to person, oriented to place, oriented to time, oriented to situation Psychiatric exam: PRESENT: appropriate affect Results Laboratory Results: 12/03/19 19:35 12/03/19 19:35 12/03/19 12/03/19 19:35 19:35 WBC 12.7 H RBC 4.34 Hgb 14.5 Hct 41.9 MCV 97 MCH 33.3 MCHC 34.5 RDW 13.0 Plt Count 342 Seg Neutrophils % 79.2 H Sodium 135.3 L Potassium 5.1 H Chloride 95 L Carbon Dioxide 27 Anion Gap 13 BUN 30 H Creatinine 1.55 H Est GFR ( Amer) 41 L Glucose 198 H Calcium 11.0 H Total Bilirubin 0.5 AST 31 Alkaline Phosphatase 95 Total Protein 9.6 H Albumin 5.6 H Lipase 236.6 Impressions: KUB X-Ray 12/03/19 19:09 IMPRESSION: There appear to be dilated small bowel loops the left mid abdomen measuring up to 4.4 cm, consider additional evaluation to exclude possible obstruction. Abdomen/Pelvis CT 12/03/19 19:10 IMPRESSION: 1. Evidence of distal small bowel obstruction similar to 10/09/2019. 2. Cannot exclude additional abnormality more proximally in the gastric related surgery. There is mild secondary dilatation of the distal esophagus. There is mild associated thickening in the GE junction which is nonspecific. 3. Intra and extra hepatic biliary dilatation unchanged but more than usually seen after cholecystectomy. If abnormal liver function test, consider MRCP. There is no suspicious pancreatic head lesion but there are nonspecific small hypodensities in the body of the pancreas. Assessment & Plan - Diagnosis (1) Small bowel obstruction Is this a current diagnosis for this admission?: Yes Plan: Impression: Recurrent small bowel obstruction, likely distal, with no evidence of acute abdomen based on physical examination; no evidence of sepsis or acidosis. Patient does not require exploratory laparotomy tonight Plan: 1. Admit, n.p.o., nasogastric decompression, IV fluids: We will use nonnarcotic medications for pain relief 2. Obtain contrast study tomorrow to rule out mechanical site of obstruction 3. I reviewed the plan with the patient who agrees to proceed. 4. Obtain rapid COVID test (2) Coronary artery disease Is this a current diagnosis for this admission?: Yes (3) History of gastric bypass Is this a current diagnosis for this admission?: Yes (4) Multiple allergies Is this a current diagnosis for this admission?: Yes (5) Diabetes mellitus Is this a current diagnosis for this admission?: Yes (6) Hypertension Is this a current diagnosis for this admission?: Yes - Time Time Spent: 50 to 70 Minutes Critical Time spent with patient: 15-24 minutes Medications reviewed and adjusted accordingly: Yes Anticipated discharge: Home - Inpatient Certification Based on my medical assessment, after consideration of the patient's comorbidities, presenting symptoms, or acuity I expect that the services needed warrant INPATIENT care.: Yes I certify that my determination is in accordance with my understanding of Medicare's requirements for reasonable and necessary INPATIENT services [42 CFR 412.3e].: Yes Medical Necessity: Need For IV Fluids, Need for Pain Control, Need for IV Antibiotics
[2019-12-03] MEDS ORDERED: RINGERS SOLUTION,LACTATED 1,000 ML IV PRN (23:40)
[2019-12-03] MEDS ORDERED: KETOROLAC TROMETHAMINE INJ/PF 30 MG/1 ML SDV IV PRN (23:40)
[2019-12-03] MEDS ORDERED: ONDANSETRON HCL INJ/PF 4 MG/2 ML SDV IV PRN (23:40)
[2019-12-04 00:55] LABS: APPEARANCE,URINE CLEAR; BILIRUBIN,URINE NEGATIVE (NEGATIVE); COLOR,URINE YELLOW; GLUCOSE, URINE NEGATIVE (NEGATIVE); KETONES,URINE NEGATIVE (NEGATIVE); LEUKOCYTE ESTERASE,URINE NEGATIVE (NEGATIVE); NITRITE,URINE NEGATIVE (NEGATIVE); PROTEIN,URINE 100 mg/dL (NEGATIVE); UROBILINOGEN,URINE NEGATIVE mg/dL (<2.0)
[2019-12-04 00:59] LABS: URINE SPECIFIC GRAVITY > 1.060
--- NOTE | 2019-12-04 02:01 | RADIOLOGY REPORT (SQ) ---
ABDOMINAL RADIOGRAPH: 12/04/2019 12:59 AM CDT COMPARISON: None available TECHNIQUE: A single radiograph of the abdomen was obtained. HISTORY: 64-year old with nasogastric tube placement. FINDINGS: Only the upper abdomen was included on this examination. The visualized lung bases appear clear. The nasogastric tube tip projects over the distal esophagus and should be advanced forward. There are surgical clips seen over the left upper abdomen. The visualized bowel gas pattern is nonspecific and nonobstructive. No abnormal intra-abdominal calcifications are seen. There are no findings to suggest organomegaly. IMPRESSION: The nasogastric tube tip projects over the distal esophagus and should be advanced forward.
--- NOTE | 2019-12-04 05:21 | RADIOLOGY REPORT (SQ) ---
EXAM DESCRIPTION: XR CHEST 1 VIEW COMPLETED DATE/TME: 12/04/2019 00:00 CLINICAL HISTORY: 64 years, Female, NG TUBE PLACEMENT COMPARISON: 10/09/2019 chest NUMBER OF VIEWS: 1 TECHNIQUE: Portable chest LIMITATIONS: None. FINDINGS: The heart size is normal. Enteric tube with the tip in the proximal stomach. The sidehole is likely near the GE junction. Consider slight advancement. Surgical clips in the upper abdomen. Lungs are clear. No pneumothorax. Heart size is normal IMPRESSION: Tip of the enteric tube in the proximal stomach. Could consider slight advancement. copyright 2010 [employer]- All Rights Reserved
[2019-12-04] MEDS ORDERED: DEXTROSE 40% GEL 15 GM TUBE PO PRN ×2 (06:36)
[2019-12-04] MEDS ORDERED: DEXTROSE 50%-WATER 25 GM/50 ML DISP.SYRIN IV PRN ×2 (06:36)
[2019-12-04] MEDS ORDERED: GLUCAGON,HUMAN RECOMB 1 MG INJ IM PRN (06:36)
[2019-12-04] MEDS ORDERED: INSULIN REG, HUMAN 100 UNIT/ML 3 ML VIAL (PYX) SUBCUT ONE (06:45)
[2019-12-04 08:00] LABS: ABSOLUTE NEUT (AUTO) 6.2 10^3/uL (1.7-8.2); BASOPHILS % (AUTO) 0.3 % (0-2); HEMATOCRIT 34.1 % (36.0-47.0); LYMPHOCYTES % (AUTO) 11.9 % (13-45); MEAN CORPUSCULAR HEMOGLOBIN 33.5 pg (27.0-33.4); MEAN CORPUSCULAR HGB CONC 34.6 g/dL (32.0-36.0); MEAN CORPUSCULAR VOLUME 97 fl (80-97); MONOCYTES % (AUTO) 12.5 % (3-13); PLATELET COUNT 284 10^3/uL (150-450); RED BLOOD COUNT 3.53 10^6/uL (3.72-5.28); RED CELL DISTRIBUTION WIDTH 12.7 % (11.5-14.0); SEGMENTED NEUTROPHILS % (AUTO) 75.3 % (42-78); TOTAL CELLS COUNTED % (AUTO) 100 %; WHITE BLOOD COUNT 8.3 10^3/uL (4.0-10.5)
[2019-12-04 08:04] LABS: HEMOGLOBIN 11.8 g/dL (12.0-15.5)
[2019-12-04 08:21] LABS: ANION GAP 8 (5-19); BLOOD UREA NITROGEN 28 mg/dL (7-20); CALCIUM 8.8 mg/dL (8.4-10.2); CARBON DIOXIDE 24 mmol/L (22-30); CHLORIDE 103 mmol/L (98-107); GLUCOSE 119 mg/dL (75-110); POTASSIUM 4.9 mmol/L (3.6-5.0)
--- NOTE | 2019-12-04 08:21 | PDOC DISCHARGE SUMMARY ---
General - Admit/Disc Date/PCP Admission Date/Primary Care Provider: 12/04/19 00:02 LEOBARDO REARDON MD Discharge Date: 12/04/19 - Discharge Diagnosis Final Diagnosis: Small bowel obstruction resolved. - Assessment Summary: 64-year-old female post gastric bypass with multiple operations for recurrent small bowel obstruction the most recent one was in August at [place]. She c enrike in last night with evidence of small bowel obstruction. The next day 12/04/2019 had good bowel movement with the resolution of abdominal pains. She is started on clear liquids for the breakfast and if tolerates full liquids for lunch then she can go home on full liquids for the next 2 days. Follow-up with the surgical clinic as needed - Additional Information Resuscitation Status: Full Code Discharge Diet: Full Liquids Discharge Activity: Activity As Tolerated Referrals: RICARDA KNOWLES MD [COMMUNITY BASED STAFF] - Follow up as needed Home Medications: Gabapentin [Neurontin 300 Mg Capsule] 300 mg PO BID #20 capsule 05/07/12 Azithromycin [Zithromax 250 mg Tablet] 250 mg PO DAILY #4 tablet 05/04/15 Prednisone [Deltasone 10 mg Tablet] 10 mg PO ASDIR PRN #21 tablet 05/04/15 Levothyroxine Sodium [Tirosint] 100 mcg PO DAILY 12/04/19 Nifedipine [Nifedipine ER] 60 mg PO DAILY 12/04/19 Spironolactone 1 DAILY 12/04/19 History of Present Illiness History of Present Illness: [place] JARA is a 64 year old female Physical Exam Vital Signs: Temp Pulse Resp BP Pulse Ox 97.8 F 65 16 165/65 H 100 12/04/19 02:56 12/04/19 02:56 12/04/19 02:56 12/04/19 04:00 12/04/19 02:56 Intake & Output 12/03/19 12/04/19 12/05/19 06:59 06:59 06:59 Intake Total 1000 Output Total 102 Balance 898 Weight 62.4 kg Results Laboratory Results: WBC 8.3 10^3/uL (4.0-10.5) 12/04/19 07:31 RBC 3.53 10^6/uL (3.72-5.28) L 12/04/19 07:31 Hgb 11.8 g/dL (12.0-15.5) L D 12/04/19 07:31 Hct 34.1 % (36.0-47.0) L 12/04/19 07:31 MCV 97 fl (80-97) 12/04/19 07:31 MCH 33.5 pg (27.0-33.4) H 12/04/19 07:31 MCHC 34.6 g/dL (32.0-36.0) 12/04/19 07:31 RDW 12.7 % (11.5-14.0) 12/04/19 07:31 Plt Count 284 10^3/uL (150-450) 12/04/19 07:31 Lymph % (Auto) 11.9 % (13-45) L 12/04/19 07:31 Mcmullen % (Auto) 12.5 % (3-13) 12/04/19 07:31 Eos % (Auto) 0.0 % (0-6) 12/04/19 07:31 Baso % (Auto) 0.3 % (0-2) 12/04/19 07:31 Absolute Neuts (auto) 6.2 10^3/uL (1.7-8.2) 12/04/19 07:31 Absolute Lymphs (auto) 1.0 10^3/uL (0.5-4.7) 12/04/19 07:31 Absolute Monos (auto) 1.0 10^3/uL (0.1-1.4) 12/04/19 07:31 Absolute Eos (auto) 0.0 10^3/uL (0.0-0.6) 12/04/19 07:31 Absolute Basos (auto) 0.0 10^3/uL (0.0-0.2) 12/04/19 07:31 Seg Neutrophils % 75.3 % (42-78) 12/04/19 07:31 Sodium 135.3 mmol/L (137-145) L 12/03/19 19:35 Potassium 5.1 mmol/L (3.6-5.0) H 12/03/19 19:35 Chloride 95 mmol/L (98-107) L 12/03/19 19:35 Carbon Dioxide 27 mmol/L (22-30) 12/03/19 19:35 Anion Gap 13 (5-19) 12/03/19 19:35 BUN 30 mg/dL (7-20) H 12/03/19 19:35 Creatinine 1.55 mg/dL (0.52-1.25) H 12/03/19 19:35 Est GFR ( Amer) 41 (>60) L 12/03/19 19:35 Est GFR (MDRD) Non-Af 34 (>60) L 12/03/19 19:35 Glucose 198 mg/dL (75-110) H 12/03/19 19:35 POC Glucose 125 mg/dL (70-110) H 12/04/19 06:58 Calcium 11.0 mg/dL (8.4-10.2) H 12/03/19 19:35 Total Bilirubin 0.5 mg/dL (0.2-1.3) 12/03/19 19:35 Direct Bilirubin 0.1 mg/dL (0.0-0.4) 12/03/19 19:35 Neonat Total Bilirubin Not Reportable 12/03/19 19:35 Neonat Direct Bilirubin Not Reportable 12/03/19 19:35 Neonat Indirect Bili Not Reportable 12/03/19 19:35 AST 31 U/L (14-36) 12/03/19 19:35 ALT 18 U/L (<35) 12/03/19 19:35 Alkaline Phosphatase 95 U/L (38-126) 12/03/19 19:35 Total Protein 9.6 g/dL (6.3-8.2) H 12/03/19 19:35 Albumin 5.6 g/dL (3.5-5.0) H 12/03/19 19:35 Lipase 236.6 U/L (23-300) 12/03/19 19:35 Urine Color YELLOW 12/04/19 00:20 Urine Appearance CLEAR 12/04/19 00:20 Urine pH 7.0 (5.0-9.0) 12/04/19 00:20 Ur Specific [place] > 1.060 12/04/19 00:20 Urine Protein 100 mg/dL (NEGATIVE) H 12/04/19 00:20 Urine Glucose (UA) NEGATIVE mg/dL (NEGATIVE) 12/04/19 00:20 Urine Ketones NEGATIVE mg/dL (NEGATIVE) 12/04/19 00:20 Urine Blood NEGATIVE (NEGATIVE) 12/04/19 00:20 Urine Nitrite NEGATIVE (NEGATIVE) 12/04/19 00:20 Urine Bilirubin NEGATIVE (NEGATIVE) 12/04/19 00:20 Urine Urobilinogen NEGATIVE mg/dL (<2.0) 12/04/19 00:20 Ur Leukocyte Esterase NEGATIVE (NEGATIVE) 12/04/19 00:20 Urine WBC (Auto) 3 /HPF 12/04/19 00:20 Urine RBC (Auto) 6 /HPF 12/04/19 00:20 Squamous Epi Cells Auto 1 /HPF 12/04/19 00:20 Urine Mucus (Auto) RARE /LPF 12/04/19 00:20 Urine Ascorbic Acid NEGATIVE (NEGATIVE) 12/04/19 00:20 COVID-19 Source Cancelled 12/03/19 23:32 COVID-19 ([facility]) Cancelled 12/03/19 23:32 SARS-CoV-2 (PCR) NEGATIVE (NEGATIVE) 12/04/19 23:32 Impressions: KUB X-Ray 12/03/19 19:09 IMPRESSION: There appear to be dilated small bowel loops the left mid abdomen measuring up to 4.4 cm, consider additional evaluation to exclude possible obstruction. Abdomen/Pelvis CT 12/03/19 19:10 IMPRESSION: 1. Evidence of distal small bowel obstruction similar to 10/09/2019. 2. Cannot exclude additional abnormality more proximally in the gastric related surgery. There is mild secondary dilatation of the distal esophagus. There is mild associated thickening in the GE junction which is nonspecific. 3. Intra and extra hepatic biliary dilatation unchanged but more than usually seen after cholecystectomy. If abnormal liver function test, consider MRCP. There is no suspicious pancreatic head lesion but there are nonspecific small hypodensities in the body of the pancreas. Chest X-Ray 12/04/19 00:00 IMPRESSION: Tip of the enteric tube in the proximal stomach. Could consider slight advancement. copyright 2011 [employer]- All Rights Reserved KUB X-Ray 12/04/19 00:49 IMPRESSION: The nasogastric tube tip projects over the distal esophagus and should be advanced forward.
[2019-12-04] MEDS ORDERED: NORMAL SALINE 1000 ML 1,000 ML IV SCH (10:00)
[2019-12-04] MEDS ORDERED: NORMAL SALINE 500 ML IV SCH (10:00)
[2019-12-04] MEDS ORDERED: INSULIN REG, HUMAN 100 UNIT/ML 3 ML VIAL (PYX) SUBCUT SCH (12:00)
[2019-12-04 12:43] VITALS: BP 165/65
== END 2019-12-04 13:05 | disposition home or self-care (01) | DRG 390 ==
LOC: ER 18:33 → EH 12-04 00:02 → 4N 12-04 02:53
PROVIDERS: ADMIT Surgery; ATTEND Surgery
DX: K56.699 Other intestinal obstruction unspecified as to partial versus complete obstruction (principal); I25.10 Atherosclerotic heart disease of native coronary artery without angina pectoris; I10 Essential (primary) hypertension; E78.5 Hyperlipidemia, unspecified; E03.9 Hypothyroidism, unspecified; E11.9 Type 2 diabetes mellitus without complications; R11.10 Vomiting, unspecified; I25.2 Old myocardial infarction; Z98.84 Bariatric surgery status; Z91.041 Radiographic dye allergy status
CPT/HCPCS: 36415; 71045; 74018; 74177; 80048; 80053; 81001; 82962; 83690; 85025; 87635; 93005; 93010; 96361; 96374; 96375; 96376; 99285; C9803; J1200; J1885; J2270; J2405; J2765; J2930; J7030; J7120; S0028

== ENCOUNTER → 2020-03-17 | Outpatient (CLI) | payer BC ==
--- NOTE | 2020-03-17 14:53 | RADIOLOGY REPORT (SQ) ---
EXAM DESCRIPTION: CT ABD/PELVIS WITH IV ONLY IMAGES COMPLETED DATE/TIME: 03/17/2020 1:53 pm REASON FOR STUDY: RLQ ABDOMINAL PAIN R10.31 RIGHT LOWER QUADRANT PAIN COMPARISON: 12/03/2019 TECHNIQUE: CT scan of the abdomen and pelvis performed using helical scanning technique with dynamic intravenous contrast injection. No oral contrast. Images reviewed with lung, soft tissue, and bone windows. Reconstructed coronal and sagittal MPR images reviewed. Delayed images for evaluation of the urinary system also acquired. All images stored on PACS. All CT scanners at this facility use dose modulation, iterative reconstruction, and/or weight based d osing when appropriate to reduce radiation dose to as low as reasonably achievable (ALARA). [facility]: Dose Right [facility]: CareDose [facility]: Dose Right [facility]: Teradose 4D [facility]: [employer] CONTRAST TYPE AND DOSE: contrast/concentration: Isovue 350.00 mmol/ml; Total Contrast Delivered: 75. 0 ml; Total Saline Delivered: 39.4 ml RENAL FUNCTION: Creatinine 1 RADIATION DOSE: CT Rad equipment meets quality standard of care and radiation dose reduction techniq ues were employed. CTDIvol: 5.5 - 7.5 mGy. DLP: 669 mGy-cm.. LIMITATIONS: None. FINDINGS: LOWER CHEST: No significant findings. No nodules or infiltrates. LIVER: Normal size. No masses. No dilated ducts. SPLEEN: Normal size. No focal lesions. PANCREAS: No masses. No significant calcifications. No adjacent inflammation or peripancreatic fluid collections. Pancreatic duct not dilated. GALLBLADDER: Surgically absent. ADRENAL GLANDS: No significant masses or asymmetry. RIGHT KIDNEY AND URETER: No solid masses. No significant calcifications. No hydronephrosis or hyd roureter. LEFT KIDNEY AND URETER: No solid masses. No significant calcifications. No hydronephrosis or hydr oureter. AORTA AND VESSELS: No aneurysm. No dissection. Renal arteries, SMA, celiac without stenosis. RETROPERITONEUM: No retroperitoneal adenopathy, hemorrhage or masses. BOWEL AND PERITONEAL CAVITY: Gastric surgery. Small bowel surgery. No masses or inflammatory change s. No free fluid or peritoneal masses. APPENDIX: Surgically absent. PELVIS: No mass. No free fluid. Normal bladder. ABDOMINAL WALL: No masses. No hernias. BONES: No significant or acute findings. OTHER: No other significant finding. IMPRESSION: Prior gastric surgery. Prior small bowel surgery. No acute findings in the abdomen or pelvis. TECHNICAL DOCUMENTATION: JOB ID: [id number] Quality ID # [id number]: Final reports with documentation of one or more dose reduction techniques (e.g., Au tomated exposure control, adjustment of the mA and/or kV according to patient size, use of iterative reconstruction technique) 2010 [employer]- All Rights Reserved Reading location - IP/workstation name: [email or web address]
== END ==
LOC: RAD 13:23
PROVIDERS: ATTEND Internal Medicine Gastroenterology
DX: R10.31 Right lower quadrant pain (principal)
CPT/HCPCS: 74177; 82565